=== PATIENT | male | born 1960 | race American Indian/Alaskan Native ===

== ENCOUNTER 2017-10-22 16:54 | Emergency (ER) | payer OTHER ==
[~2017-10-22] VITALS: Ht 175.3 cm; Wt 72.2 kg
[2017-10-22] MEDS ORDERED: PENICILLIN V P500 MG PO (17:17)
== END 2017-10-22 18:00 | disposition home or self-care (01) ==
LOC: ED 16:54
DX: K06.8 Other specified disorders of gingiva and edentulous alveolar ridge (principal); F10.20 Alcohol dependence, uncomplicated; F17.200 Nicotine dependence, unspecified, uncomplicated; Z98.890 Other specified postprocedural states; Z88.5 Allergy status to narcotic agent; Z88.8 Allergy status to other drugs, medicaments and biological substances
CPT/HCPCS: 99283

== ENCOUNTER 2017-11-17 14:01 | Emergency (ER) | payer OTHER ==
[~2017-11-17] VITALS: Ht 175.3 cm; Wt 72.2 kg
[~2017-11-17 14:01] MED LIST: PENICILLIN V P500 MG PO
== END 2017-11-17 18:55 | disposition home or self-care (01) ==
LOC: ED 14:01
DX: G89.18 Other acute postprocedural pain (principal); M79.661 Pain in right lower leg; F17.200 Nicotine dependence, unspecified, uncomplicated; Z88.5 Allergy status to narcotic agent; Z88.8 Allergy status to other drugs, medicaments and biological substances
CPT/HCPCS: 73590; 99283

== ENCOUNTER 2017-11-21 20:02 | Emergency (ER) | payer OTHER ==
[~2017-11-21] VITALS: Ht 175.3 cm; Wt 72.2 kg
[2017-11-21] MEDS ORDERED: CEPHALEXIN500 MG PO (21:45)
== END 2017-11-21 22:01 | disposition home or self-care (01) ==
LOC: ED 20:02
DX: G89.18 Other acute postprocedural pain (principal); R68.84 Jaw pain; M79.661 Pain in right lower leg; F17.200 Nicotine dependence, unspecified, uncomplicated; Z98.890 Other specified postprocedural states; Z88.5 Allergy status to narcotic agent; Z88.8 Allergy status to other drugs, medicaments and biological substances; Z79.2 Long term (current) use of antibiotics
CPT/HCPCS: 99283

== ENCOUNTER 2018-05-08 16:15 | Emergency (ER) | payer OTHER ==
[~2018-05-08] VITALS: Ht 175.3 cm; Wt 72.2 kg
[~2018-05-08 16:15] MED LIST changes: +CEPHALEXIN500 MG PO; +IBU600 MG PO
== END 2018-05-08 17:16 | disposition home or self-care (01) ==
LOC: ED 16:15
DX: F10.129 Alcohol abuse with intoxication, unspecified (principal); F17.200 Nicotine dependence, unspecified, uncomplicated; Z88.5 Allergy status to narcotic agent; Z88.8 Allergy status to other drugs, medicaments and biological substances
CPT/HCPCS: 99284

== ENCOUNTER 2018-12-31 11:59 | Emergency (ER) | payer OTHER ==
[~2018-12-31] VITALS: Ht 175.3 cm; Wt 72.2 kg
--- OUTSIDE RECORDS SUMMARY | 2018-12-31 12:02 | XMS ---
PreManage Notification: MARK CHAN Security Software Educator Events No recent Security Events currently on file CRITERIA MET - Group Notification - [facility] - Has Care Guidelines CARE PROVIDERS BERNARDO COYLE [facility] 05/09/2018-Current PHONE: Unknown DR BERNARDO COYLE Primary Care Current PHONE: [phone] Guidelines Source: [facility] Guidelines Date: 11/23/2017 Care Coordination: PATIENT DOES NOT HAVE A APPOINTMENT IN [place] OR AR[place]ANGED RIDE TO [employer] IF HE COMES IN, HE IS TO CONTACT [facility] AND SPEAK WITH GEORGES DOSS AT [phone] . AT THIS TIME THE ONLY PLAN THROUGH [facility] IS A DENTIST APPOINTMENT 11/29/17. HE DOES NOT HAVE MEDICAL COVERAGE THROUGH THIS [place]. HE CAN APPLY FOR THIS, HE MUST TALK WITH GEORGES. Care History Social 11/22/2017 [facility] PATIENT IS HOMELESS. PATIENT'S IS IN A HALFWAY IN [place].PATIENT IS A [employer]BER OF [employer] [place] WHERE HIS MOTHER LIVES. HE HAS MEDICAL BENEFITS THROUGH THEM. [facility] IS TRYING TO HELP PATIENT, HE IS NON-COMPLIANT AND DOES NOT FOLLOW THROUGH WITH PLANS. PATIENT HAS BEEN TRESSPASSED FROM THE [employer] STATION. [place] VISIT COUNT (12 MO.) [facility] SAMANTHA Ramon TOTAL 4 NOTE: Visits indicate total known visits. ED/UCC VISIT TRACKING (12 MO.) 12/31/2018 11:59 SAMANTHA Soto [place] TYPE: Emergency COMPLAINT: - LOSS OF CONCIOUSNESS 10/20/2018 08:12 [facility] [place] TYPE: Emergency DIAGNOSES: 0. NOT FEELING WELL 05/08/2018 16:15 SAMANTHA Fernández TYPE: Emergency COMPLAINT: - INTOXICATED DIAGNOSES: - Nicotine dependence, unspecified, uncomplicated - Allergy status to narcotic agent status - Alcohol abuse with intoxication, unspecified - Allergy status to other drugs, medicaments and biological substances status 04/27/2018 14:34 SAMANTHA Fernández TYPE: Emergency COMPLAINT: - CHEMICAL EXPOSURE DIAGNOSES: - Contact with and (suspected) exposure to other hazardous, chiefly nonmedicinal, chemicals - Nicotine dependence, unspecified, uncomplicated - Allergy status to other drugs, medicaments and biological substances status - Allergy status to narcotic agent status - Unspecified acute conjunctivitis, bilateral - Dermatitis, unspecified INPATIENT VISIT TRACKING (12 MO.) No inpatient visits to display in this time frame [id number]
[2018-12-31] MEDS ORDERED: CYMBALTA30 MG PO (12:15)
[2018-12-31] MEDS ORDERED: NEURONTIN300 MG PO (12:15)
--- NOTE | 2018-12-31 19:09 | EKG ---
[facility] [address] [facility] [place], [place] [address] Signed Sinus rhythm with 1st degree AV block Otherwise normal ECG When compared with ECG of 16-JUN-2016 12:17, No significant change was found Confirmed by JOHN FISH DO ([id number]) on 12/31/2018 7:08:54 PM Electronically Signed By: JOHN FISH DO 12/31/18 1909 PATIENT NAME: DUSTINMARK Electrocardiogram DATE OF : 64 PHYSICIAN: JOHN FISH DO REPORT #: [id number] REPORT IS CONFIDENTIAL AND NOT TO BE RELEASED WITHOUT AUTHORIZATION
== END 2018-12-31 13:57 | disposition home or self-care (01) ==
LOC: ED 11:59
DX: F10.129 Alcohol abuse with intoxication, unspecified (principal); Y90.8 Blood alcohol level of 240 mg/100 ml or more; Z85.830 Personal history of malignant neoplasm of bone; F17.200 Nicotine dependence, unspecified, uncomplicated; Z88.5 Allergy status to narcotic agent; Z88.8 Allergy status to other drugs, medicaments and biological substances; Z79.899 Other long term (current) drug therapy
CPT/HCPCS: 80053; 84484; 85025; 93005; 93010; 99284-25; G0480

== ENCOUNTER 2019-01-16 20:03 | Emergency (ER) | payer OTHER ==
[~2019-01-16] VITALS: Ht 175.3 cm; Wt 72.2 kg
--- OUTSIDE RECORDS SUMMARY | ~2019-01-16 | XMS | Encounter Summary ---
Demographics + + + | Address | [address] | | | [place] [address] | + + + | Home Phone | | + + + | Preferred Language | Unknown | + + + | Marital Status | Single | + + + | Baptism Affiliation | Unknown | + + + | Race | Unknown | + + + | Ethnic Group | Unknown | + + + Author + + + | Author | [facility] | | | and Demetriana | + + + | Organization | [facility] | | | and Demetriana | + + + | Address | Unknown | + + + | Phone | Unavailable | + + + Support + + +---------+ + | Name | Relationship | Address | Phone | + + +---------+ + | Rosalina Wilson | ECON | Unknown | | + + +---------+ + Care Team Providers + +------+ + | Care Psychologist Engineering Name | Role | Phone | + +------+ + | Pallavi Santiago PA-C | PCP | | + +------+ + Encounter Details +--------+ + + + + | Date | Type | Department | Care Team | Description | +--------+ + + + + | 12/15/ | Abstract | [facility] | Helio Fink DO | | | 2019 | | MED CTR RADIATION | [address] | | | | | ONCOLOGY CLINIC [address] | [place] | | | | | [place] | [address] | | | | | [place] [address] | | | | | | [phone] | | | +--------+ + + + + Social History + +-------+ +--------+------+ | Tobacco Use | Types | Packs/Day | Years | Date | | | | | Used | | + +-------+ +--------+------+ | Never Assessed | | | | | + +-------+ +--------+------+ + + + | Sex Assigned at | Date Recorded | | | | + + + | Not on file | | + + + + + + + | Job Start Date | Occupation | Industry | + + + + | Not on file | Not on file | Not on file | + + + + + + + + | Travel History | Travel Start | Travel End | + + + + + + | No recent travel history available. | + + documented as of this encounter Plan of Treatment Not on filedocumented as of this encounter Visit Diagnoses Not on filedocumented in this encounter"
--- OUTSIDE RECORDS SUMMARY | ~2019-01-16 | XMS | Encounter Summary ---
Demographics + + + | Address | [address] | | | [place] [address] | + + + | Home Phone | | + + + | Preferred Language | Unknown | + + + | Marital Status | Single | + + + | Adventism Affiliation | Unknown | + + + | Race | Unknown | + + + | Ethnic Group | Unknown | + + + Author + + + | Author | [facility] | | | and Demetriana | + + + | Organization | [facility] | | | and Demetriana [...] Team Providers + +------+ + | Care Animal Shelter Supervisor Name | Role | Phone | + [...] cavity | Helio Sevilla DO | [place] | | | | | carcinoma | [address] | [place], | | | | | ([facility]) | [address] | [place] [address] | | | | | Procedures | [place], | Phone: | | | | | CT Chest w | [place] [address] | [phone] | | | | | Contrast | Phone: | Fax: | | | | | | [phone] | [phone] | | | | | | Fax: | | | | | | | [phone] | | +--------+--------+ + + + + Reason for Visit +---------+ + | Reason | Comments | +---------+ + | Consult | | +---------+ + Evaluate & Treat (Routine) +--------+ + + + + + | Status | Reason | Specialty | Diagnoses / | Referred By | Referred To | | | | | Procedures | Contact | Contact | +--------+ + + + + + | Closed | Specialty | Radiation | Diagnoses | Pamela, | Helio Fink | | | Services | Oncology | [place] floor of | Pallavi A, | C, DO [address] | | | Required | | mouth | [place] [address] | [address] | | | | | Procedures | | [place], | | | | | [place] OFFICE | [place] | [place] [address] | | | | | OUTPATIENT | WAY | Phone: | | | | | VIS[address] | [place], | [phone] | | | | | MINUTES | [place] [address] | Fax: | | | | | | Phone: | [phone] | | | | | | [phone] | | | | | | | Fax: | | | | | | | [phone] | | +--------+ + + + + + Encounter Details +--------+ + + + + | Date | Type | Department | Care Team | Description | +--------+ + + + + | 12/18/ | Hospital | [facility] | Helio Fink DO | Oral cavity | | 2019 | Encounter | MED CTR RADIATION | [address] | carcinoma (HCC) | | | | ONCOLOGY CLINIC [address] | [place] | (Primary Dx); Cancer | | | | [place] | [address] | of lip and oral | | | | [place] [address] | | cavity (HCC) | | | | [phone] | | | +--------+ + + + [...] | Comments: States started smoking over last year | + + + + +---------+ + [...] + + + | Blood Pressure | 135/85 | 12/18/20181233 PDT | + + + + | Pulse | 71 | 12/18/20181233 PDT | + + + + | Temperature | 36.5 C (97.7 F) | 12/18/20181233 PDT | + + + + | Respiratory Rate | 16 | 12/18/20181233 PDT | + + + + | Oxygen Saturation | 99% | 12/18/20181233 PDT | + + + + | Inhaled Oxygen | - | - | | Concentration | | | + + + + | Weight | 81.5 kg (179 lb 10.8 | 12/18/20181233 PDT | | | oz) | | + + + + | Height | 178 cm (5' 10.08") | 12/18/20184 PDT | + + + + | Body Mass Index | 25.72 | 12/18/20181233 PDT | + + + + documented in [...] | + + + +---------+--------+ + | lidocaine | Place 1 patch onto | | 0 | | | | (LIDODERM) 5% patch | the skin Daily. | | | | 9 | | | Apply for 12 hours, | | | | | | | then remove for 12 | | | | | | | hours. 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
--- OUTSIDE RECORDS SUMMARY | ~2019-01-16 | XMS | Encounter Summary ---
Demographics + + + | Address | [address] | | | [place] [address] | + + + | Home Phone | | + + + | Preferred Language | Unknown | + + + | Marital Status | Single | + + + | Yarsani Affiliation | Unknown | + + + | Race | Unknown | + + + | Ethnic Group | Unknown | + + + Author + + + | Author | [facility] | | | and Demetriana | + + + | Organization | [facility] | | | and Demetriana | [...] Team Providers + +------+ + | Care Platform Mill Supervisor Name | Role | Phone | + +------+ + | Pallavi Santiago PA-C | PCP | | + +------+ + Encounter Details +--------+ + + + + | Date | Type | Department | Care Team | Description | +--------+ + + + + | 12/15/ | Abstract | [facility] | Helio Fink DO | | | 2019 | | MED CTR RADIATION | [address] | | | | | ONCOLOGY CLINIC [address] | [place] | | | | | [place] | [address] | | | | | [place] [address] | | | | | | [phone] | | | +--------+ + + + [...]
--- OUTSIDE RECORDS SUMMARY | ~2019-01-16 | XMS | Encounter Summary ---
Demographics + + + | Address | [address] | | | [place] [address] | + + + | Home Phone | | + + + | Preferred Language | Unknown | + + + | Marital Status | Single | + + + | Jewish Affiliation | Unknown | + + + | Race | Unknown | + + + | Ethnic Group | Unknown | + + + Author + + + | Author | [facility] | | | and Demetriana | + + + | Organization | [facility] | | | and Demetriana [...] Team Providers + +------+ + | Care Hoseman Name | Role | Phone | + [...] cavity | Helio Sevilla DO | [place] | | | | | carcinoma | [address] | [place], | | | | | ([facility]) | [address] | [place] [address] | | | | | Procedures | [place], | Phone: | | | | | CT Chest w | [place] [address] | [phone] | | | | | Contrast | Phone: | Fax: | | | | | | [phone] | [phone] | | | | | | Fax: | | | | | | | [phone] | | +--------+--------+ + + + + [...] cavity | Helio C, DO | [place] | | | | | carcinoma | [address] | [place], | | | | | ([facility]) | [address] | [place] [address] | | | | | Procedures | [place], | Phone: | | | | | CT Chest w | [place] [address] | [phone] | | | | | Contrast | Phone: | Fax: | | | | | | [phone] | [phone] | | | | | | Fax: | | | | | | | [phone] | | +--------+--------+ + + + + [...] + + | 12/21/ | Hospital | [facility] | Helio Fink DO | Oral cavity | | 2019 | Encounter | MED CTR CT [address] | [address] | carcinoma (HCC) | | | | [place], | [place], [place] | | | | | [place] [address] | [address] | | | | | [phone] | | | +--------+ + + + [...] | fusion between the bone graft and [place] portions of the mandible. | | | [...] is well | | | fused with [place] portions of the mandible. Ill-defined soft | [...] completeosseous fusion between the bone graft and [place] portions of the | | mandible. There [...] The bone graft is well fused with [place] | | portionsof the mandible.Ill-defined soft tissue [...] The bone graft is well fused with [place] portions | |of the mandible. | | [...]
--- OUTSIDE RECORDS SUMMARY | ~2019-01-16 | XMS | Clinical Summary ---
Demographics + + + | Address | [address] | | | [place] [address] | + + + | Home Phone | | + + + | Preferred Language | Unknown | + + + | Marital Status | Single | + + + | Scientology Affiliation | Unknown | + + + | Race | Unknown | + + + | Ethnic Group | Unknown | + + + Author + + + | Author | [facility] | | | and Demetriana | + + + | Organization | [facility] | | | and Demetriana | [...] Team Providers + +------+ + | Care Laborer Cutting Tool Name | Role | Phone | + +------+ + | Pallavi Santiago PA-C | PP | | + +------+ + Allergies + + + + + + | Active Allergy | Reactions | Severity | Noted | Comments | | | | | Date | | + + + + + + | Chlorpromazine | Other (See Comments) | Medium | 06/20/20 | Not known | | | | | 16 | | + + + + + + | Codeine | Hives | Medium | 06/20/20 | unknown | | | | | 16 | | + + + + + + Medications + + + +---------+------+------+-------+ | Medication | Sig | Dispensed | Refills | Star | End | Statu | | | | | | t | Date | s | | | | | | Date | | | + + + +---------+------+------+-------+ | ibuprofen | Take 600 mg by mouth | | 0 | | | Activ | | (ADVIL,MOTRIN) 600 | every 6 hours as | | | | | e | | MG tablet | needed for Pain. | | | | | | + + + +---------+------+------+-------+ | Multiple | Take 1 tablet by | | 0 | | | Activ | | Vitamins-Minerals | mouth Daily. | | | | | e | | (MULTIVITAMIN & | | | | | | | | MINERAL PO) | | | | | | | + + + +---------+------+------+-------+ | gabapentin | Take 300 mg by mouth | | 0 | | | Activ | | (NEURONTIN) 300 mg | 3 times daily. | | | | | e | | capsule | | | | | | | + + + +---------+------+------+-------+ | cholecalciferol | Take 2,000 Units by | | 0 | | | Activ | | (VITAMIN D-3) 2000 | mouth Daily. | | | | | e | | units TABS | | | | | | | + + + +---------+------+------+-------+ | DULoxetine | Take 20 mg by mouth | | 0 | | | Activ | | (CYMBALTA) [address] | Daily. | | | | | e | | capsule | | | | | | | + + + +---------+------+------+-------+ | cyanocobalamin | Take 1,000 mcg by | | 0 | | | Activ | | (VITAMIN B-12) 1000 | mouth Daily. | | | | | e | | MCG tablet | | | | | | | + + + +---------+------+------+-------+ | ascorbic acid | Take 500 mg by mouth | | 0 | | | Activ | | (VITAMIN C) 500 mg | Daily. | | | | | e | | tablet | | | | | | | + + + +---------+------+------+-------+ | | Swish and spit 5 mLs | | 0 | | | Activ | | diphenhydrAMINE-lido | every 4 hours as | | | | | e | | alysa-aluminum & | needed for Pain. | | | | | | | magnesium | (RECIPE = 1:1:1 | | | | | | | hydroxide-simethicon | mixture of Maalox, | | | | | | | e (MAGIC MOUTHWASH) | diphenhydrAMINE, | | | | | | | | viscous lidocaine) | | | | | | + + + +---------+------+------+-------+ | DICLOFENAC PO | Take 50 mg by mouth | | 0 | | | Activ | | | 2 times daily. | | | | | e | + + + +---------+------+------+-------+ | MAGNESIUM OXIDE | Take 1 tablet by | | 0 | | | Activ | | 400 PO | mouth Daily. | | | | | e | + + + +---------+------+------+-------+ | naproxen | Take 500 mg by mouth | | 0 | | | Activ | | (NAPROSYN) 250 mg | 2 times daily (with | | | | | e | | tablet | breakfast & | | | | | | | | dinner). | | | | | | + + + +---------+------+------+-------+ | lidocaine | Place 1 patch onto | | 0 | | 03/2 | Disco | | (LIDODERM) 5% patch | the skin Daily. | | | | 1/20 | ntinu | | | Apply for 12 hours, | | | | 19 | ed | | | then remove for 12 | | | | | | | | hours. | | | | | | + + + +---------+------+------+-------+ Active Problems + + + | Problem | Noted Date | + + + | Oral cavity carcinoma | 12/06/2018 | + + + + + | Cancer Staging: Pathologic stage from 12/18/2018: Stage FLORY | | (pN0, cM0, p16: Unknown, HPV: Unknown) - Signed by Helio Fink, | | DO on 12/19/2018 | + + Encounters +--------+ + + + + | Date | Type | Specialty | Care Team | Description | +--------+ + + + + | 12/21/ | Hospital | | Ashvin Fajardo, | Oral cavity | | 2018 | Encounter | | MD | carcinoma (HCC) | | | | | | (Primary Dx) | +--------+ + + + + | 12/21/ | Hospital | | Helio Fink DO | Oral cavity | | 2018 | Encounter | | | carcinoma (HCC) | +--------+ + + + + | 12/18/ | Hospital | | Helio Fink DO | Oral cavity | | 2018 | Encounter | | | carcinoma (HCC) | | | | | | (Primary Dx); Cancer | | | | | | of lip and oral | | | | | | cavity (HCC) | +--------+ + + + + | 12/15/ | Abstract | | Helio Fink DO | | | 2018 | | | | | +--------+ + + + + from Last 3 Months Immunizations + + + + | Name | Dates Previously Given | Next Due | + + + + | PNEUMOCOCCAL | 06/21/2016 | | | POLYSACCHARIDE | | | | 23-VALENT (PPSV23) | | | + + + + Family History + + +------+ + | Medical History | Relation | Name | Comments | + + +------+ + | Cancer | Father | | | + + +------+ + | Cancer | Maternal | | | | | Grandmoth | | | | | er | | | + + +------+ + + +------+ + + | Relation | Name | Status | Comments | + +------+ + + | Father | | | | + +------+ + + | Maternal Grandmother | | | | + +------+ + + | Mother | | Alive | | + +------+ + + Social History + +-------+ +--------+------+ [...] recent travel history available. | + + Last Filed Vital Signs + + + + | Vital Sign | Reading | Time Taken | + + + + | Blood Pressure | 124/77 | 12/21/20181027 PDT | + + + + | Pulse | 88 | 12/21/20181027 PDT | + + + + | Temperature | 36.9 C (98.4 F) | 12/21/20188 PDT | + + + + | [...] 12/18/20181233 PDT | + + + + Plan of Treatment + + + + + | Health Maintenance | Due Date | Last Done | Comments | + + + + + | Hepatitis C | | | | | Screening | 2 | | | + + + + + | Colorectal Cancer | | | | | Screening | 2 | | | | (Colonoscopy) | | | | + + + + + | Vaccine: | | 06/21/2016, 05/06/2011 | | | Pneumococcal 19-64 | 7 | | | | Highest Risk (3 of 3 | | | | | - PCV13) | | | | + + + + + | Vaccine: Zoster (2 | | 11/23/2018 | | | of 2) | 9 | | | + + + + + | Vaccine: | | 06/24/2015, 05/06/2011 | | | Dtap/Tdap/Td (3 - | 5 | | | | Td) | | | | + + + + + | Vaccine: Influenza | Completed | 07/27/2018 | | + + + + + Procedures + +--------+ + + + | [...] section. | + +--------+ + + + from Last 3 Months Results IMAGING REPORT - EXTERNAL SCAN (12/25/2018 0:00 PDT)Only the most recent of 2 results with in the time period is included. + + + | Narrative | Performed At | + + + | Ordered by an | | | unspecified provider. | | + + + CT Neck Chest w Contrast (12/21/2018 7:33 [...] | fusion between the bone graft and [place] portions of the mandible. | | | [...] is well | | | fused with [place] portions of the mandible. Ill-defined soft | [...] completeosseous fusion between the bone graft and [place] portions of the | | mandible. There [...] The bone graft is well fused with [place] | | portionsof the mandible.Ill-defined soft tissue [...] The bone graft is well fused with [place] portions | |of the mandible. | | [...] | | | + +---------+ + + from Last 3 Months Insurance + +--------+ +--------+ +---------+--------+ | Payer | Benefi | Subscriber | Effect | Phone | Address | Type | | | t Plan | ID | tressa | | | | | | / | | Dates | | | | | | Group | | | | | | + +--------+ +--------+ +---------+--------+ | [place]ICA | [id number] | | [phone] | | Medica | | | [place] | | 018-Pr | 2 | | id | | | PLUS | | esent | | | | + +--------+ +--------+ +---------+--------+ | [employer] [facility] | IHS | [id number] | | | | Indemn | | SERVICE | YELLOW | | 019-Pr | | | ity | | | HAWK | | esent | | | | + +--------+ +--------+ +---------+--------+ + +--------+ +--------+ + + | Guarantor Name | Accoun | Relation to | Date | Phone | Billing Address | | | t Type | Patient | of | | | | | | | | | | + +--------+ +--------+ + + | Enrrique Wilson | Person | Self | [birth year] | [address] | | | al/Alonso | | 1960 | [phone] | [place] [address] | | | korin | | | 4 (Home) | | + +--------+ +--------+ + + Advance Directives Patient has advance care planning documents on file. For more information, please contact:[facility] [place] [address]
--- OUTSIDE RECORDS SUMMARY | ~2019-01-16 | XMS | Clinical Summary ---
Demographics + + + | Address | [address] | | | [place] [address] | + + + | Home Phone | | + + + | Preferred Language | Unknown | + + + | Marital Status | Single | + + + | Jew Affiliation | Unknown | + + + | Race | Unknown | + + + | Ethnic Group | Unknown | + + + Author + + + | Author | [facility] | | | and Demetriana | + + + | Organization | [facility] | | | and Demetriana [...] Team Providers + +------+ + | Care Warehouse Distribution Manager Name | Role | Phone | + [...] | fusion between the bone graft and [place] portions of the mandible. | | | [...] is well | | | fused with [place] portions of the mandible. Ill-defined soft | [...] completeosseous fusion between the bone graft and [place] portions of the | | mandible. There [...] The bone graft is well fused with [place] | | portionsof the mandible.Ill-defined soft tissue [...] The bone graft is well fused with [place] portions | |of the mandible. | | [...] +---------+--------+ | MEDICAID [place] | MEDICA | [id number] | | [phone] | | Medica | | | [place] | | 018-Pr | 2 | | id | | | PLUS | | esent | | | | + +--------+ +--------+ +---------+--------+ | [facility] | IHS | [id number] | | | | Indemn | | [...] | | al/Alonso | | [id number] | [phone] | [place] [address] | | | korin | | | 4 (Home) | | + +--------+ +--------+ + + Advance Directives Patient has advance care planning documents on file. For more information, please contact:[facility] [place] [address]
--- OUTSIDE RECORDS SUMMARY | ~2019-01-16 | XMS | Encounter Summary ---
Demographics + + + | Address | [address] | | | [place] [address] | + + + | Home Phone | | + + + | Preferred Language | Unknown | + + + | Marital Status | Single | + + + | Orthodox Affiliation | Unknown | + + + | Race | Unknown | + + + | Ethnic Group | Unknown | + + + Author + + + | Author | [facility] | | | and Demetriana | + + + | Organization | [facility] | | | and Demetriana [...] Team Providers + +------+ + | Care Senior Account Representative Name | Role | Phone | + [...] cavity | Helio Sevilla DO | [address] | | | | | carcinoma | [address] | [place], | | | | | ([facility]) | [address] | [place] [address] | | | | | Procedures | [place], | Phone: | | | | | CT Chest w | [place] [address] | [phone] | | | | | Contrast | Phone: | Fax: | | | | | | [phone] | [phone] | | | | | | Fax: | | | | | | | [phone] | | +--------+--------+ + + + + [...] cavity | Helio C, DO | [address] | | | | | carcinoma | [address] | [place], | | | | | ([facility]) | [address] | [place] [address] | | | | | Procedures | [place], | Phone: | | | | | CT Chest w | [place] [address] | [phone] | | | | | Contrast | Phone: | Fax: | | | | | | [phone] | [phone] | | | | | | Fax: | | | | | | | [phone] | | +--------+--------+ + + + + [...] + + | 12/21/ | Hospital | [facility] | Helio Fink DO | Oral cavity | | 2019 | Encounter | MED [facility] [address] | [address] | carcinoma (HCC) | | | | [address] [place], | [place], [place] | | | | | [place] [address] | [address] | | | | | [phone] | | | +--------+ + + + [...] | fusion between the bone graft and [place] portions of the mandible. | | | [...] is well | | | fused with [place] portions of the mandible. Ill-defined soft | [...] completeosseous fusion between the bone graft and [place] portions of the | | mandible. There [...] The bone graft is well fused with [place] | | portionsof the mandible.Ill-defined soft tissue [...] The bone graft is well fused with [place] portions | |of the mandible. | | [...]
--- OUTSIDE RECORDS SUMMARY | ~2019-01-16 | XMS | Encounter Summary ---
Demographics + + + | Address | [address] | | | [place] [address] | + + + | Home Phone | | + + + | Preferred Language | Unknown | + + + | Marital Status | Single | + + + | Restoration Affiliation | Unknown | + + + | Race | Unknown | + + + | Ethnic Group | Unknown | + + + Author + + + | Author | [facility] | | | and Demetriana | + + + | Organization | [facility] | | | and Demetriana [...] Team Providers + +------+ + | Care Alum Mixer Name | Role | Phone | + [...] | | | | | Procedures | [address] | [place] | | | | | IN OFFICE | | [place] | | | | | OUTPATIENT | [place], | [address] | | | | | VISIT 25 | [place] | Phone: | | | | | MINUTES | [address] | [phone] | | | | | | | Fax: | | | | | | | [phone] | +--------+ + + + + + Encounter Details +--------+ + + + + | Date | Type | Department | Care Team | Description | +--------+ + + + + | 12/21/ | Hospital | [facility] | Ashvin Fajardo, | Oral cavity | | 2019 | Encounter | MED CTR MEDICAL | [address] | carcinoma (HCC) | | | | ONCOLOGY CLINIC [address] | [place] | (Primary Dx) | | | | [address] | [address] | | | | | [place] [address] | [phone] | | | | | [phone] | | | +--------+ + + + [...]
--- OUTSIDE RECORDS SUMMARY | ~2019-01-16 | XMS | Encounter Summary ---
Demographics + + + | Address | [address] | | | [place] [address] | + + + | Home Phone | | + + + | Preferred Language | Unknown | + + + | Marital Status | Single | + + + | Muslim Affiliation | Unknown | + + + | Race | Unknown | + + + | Ethnic Group | Unknown | + + + Author + + + | Author | [facility] | | | and Demetriana | + + + | Organization | [facility] | | | and [...] Team Providers + +------+ + | Care Manuscript Editor Name | Role | Phone | + [...] cavity | Helio Sevilla DO | [address] | | | | | carcinoma | [address] | [place], | | | | | ([facility]) | [address] | [place] [address] | | | | | Procedures | [place], | Phone: | | | | | CT Chest w | [place] [address] | [phone] | | | | | Contrast | Phone: | Fax: | | | | | | [phone] | [phone] | | | | | | Fax: | | | | | | | [phone] | | +--------+--------+ + + + + [...] | Required | | mouth | [place] [address] | [address] | | | | | Procedures | | [place], | | | | | [place] OFFICE | [place] | [place] [address] | | | | | OUTPATIENT | WAY | Phone: | | | | | VIS[address] | [place], | [phone] | | | | | MINUTES | [place] [address] | Fax: | | | | | | Phone: | [phone] | | | | | | [phone] | | | | | | | Fax: | | | | | | | [phone] | | +--------+ + + + + + Encounter Details +--------+ + + + + | Date | Type | Department | Care Team | Description | +--------+ + + + + | 12/18/ | Hospital | [facility] | Helio Fink DO | Oral cavity | | 2019 | Encounter | MED CTR RADIATION | [address] | carcinoma (HCC) | | | | ONCOLOGY CLINIC [address] | [place] | (Primary Dx); Cancer | | | | [address] | [address] | of lip and oral | | | | [place] [address] | | cavity (HCC) | | | | [phone] | | | +--------+ + + + [...]
--- OUTSIDE RECORDS SUMMARY | ~2019-01-16 | XMS | Encounter Summary ---
Demographics + + + | Address | [address] | | | [place] [address] | + + + | Home Phone | | + + + | Preferred Language | Unknown | + + + | Marital Status | Single | + + + | Jehovah'S Witness Affiliation | Unknown | + + + | Race | Unknown | + + + | Ethnic Group | Unknown | + + + Author + + + | Author | [facility] | | | and Demetriana | + + + | Organization | [facility] | | | and [...] Team Providers + +------+ + | Care Supervisor Metalizing Name | Role | Phone | + [...] | | | | | Procedures | [address] | [place] | | | | | [place] OFFICE | | [place] | | | | | OUTPATIENT | [place], | [address] | | | | | VISIT [address] | [place] | Phone: | | | | | MINUTES | [address] | [phone] | | | | | | | Fax: | | | | | | | [phone] | +--------+ + + + + + Encounter Details +--------+ + + + + | Date | Type | Department | Care Team | Description | +--------+ + + + + | 12/21/ | Hospital | [facility] | Ashvin Fajardo, | Oral cavity | | 2019 | Encounter | MED CTR MEDICAL | [address] | carcinoma (HCC) | | | | ONCOLOGY CLINIC [address] | [place] | (Primary Dx) | | | | [address] | [address] | | | | | [place] [address] | [phone] | | | | | [phone] | | | +--------+ + + + [...]
[~2019-01-16 20:03] MED LIST changes: +CYMBALTA30 MG PO; +NEURONTIN300 MG PO
--- OUTSIDE RECORDS SUMMARY | 2019-01-16 20:06 | XMS ---
PreManage Notification: MARK CHAN Security Online Marketing Analyst Events No recent Security Events currently on file CRITERIA MET - Group Notification - [facility] - Has Care Guidelines - [facility] - 2 Visits in 30 Days CARE PROVIDERS BERNARDO COYLE [facility] 05/09/2018-Current PHONE: Unknown DR BERNARDO COYLE Primary Care Current PHONE: [phone] Guidelines Source: [facility] Guidelines Date: 11/23/2017 Care Coordination: PATIENT DOES NOT HAVE A APPOINTMENT IN [place] OR ARRANGED RIDE TO [place]. IF HE COMES IN, HE IS TO CONTACT [facility] AND SPEAK WITH GEORGES DOSS AT [phone] . AT THIS TIME THE ONLY PLAN THROUGH [facility] IS A DENTIST APPOINTMENT 11/29/17. HE DOES NOT HAVE MEDICAL COVERAGE THROUGH THIS [place]. HE CAN APPLY FOR THIS, HE MUST TALK WITH GEORGES. Care History Social 11/22/2017 [facility] PATIENT IS HOMELESS. PATIENT'S IS IN A ASSISTED IN [place].PATIENT IS A [employer] [employer] [place] WHERE HIS MOTHER LIVES. HE HAS MEDICAL BENEFITS THROUGH THEM. [facility] IS TRYING TO HELP PATIENT, HE IS NON-COMPLIANT AND DOES NOT FOLLOW THROUGH WITH PLANS. PATIENT HAS BEEN TRESSPASSED FROM THE [employer] STATION. [place] VISIT COUNT (12 MO.) [place] [place] [address] SAMANTHA Ramon TOTAL 5 NOTE: Visits indicate total known visits. ED/UCC VISIT TRACKING (12 MO.) 01/16/2019 20:03 SAMANTHA Soto [place] TYPE: Emergency COMPLAINT: - CHEST PAIN 12/31/2018 11:59 SAMANTHA Soto [place] TYPE: Emergency COMPLAINT: - LOSS OF CONCIOUSNESS DIAGNOSES: - Syncope and collapse - Personal history of malignant neoplasm of bone - Blood alcohol level of 240 mg/100 ml or more - Nicotine dependence, unspecified, uncomplicated - Other fpc (current) drug therapy - Alcohol abuse with intoxication, unspecified - Allergy status to narcotic agent status - Allergy status to other drugs, medicaments and biological substances status 10/20/2018 08:12 [facility] TYPE: Emergency DIAGNOSES: 0. NOT FEELING WELL 05/08/2018 16:15 SAMANTHA [place]oto [place] TYPE: Emergency COMPLAINT: - INTOXICATED DIAGNOSES: - Nicotine dependence, unspecified, uncomplicated - Allergy status to narcotic agent status - Alcohol abuse with intoxication, unspecified - Allergy status to other drugs, medicaments and biological substances status 04/27/2018 14:[address] [facility] [place] TYPE: Emergency COMPLAINT: - CHEMICAL EXPOSURE DIAGNOSES: [...] visits to display in this time frame [email or web address]
--- NOTE | 2019-01-17 15:57 | EKG ---
[facility] [address] [place], [place] [address] Signed Sinus rhythm with 1st degree AV block Otherwise normal ECG When compared with ECG of 31-DEC-2018 12:20, No significant change was found Confirmed by JOHN FISH DO ([id number]) on 01/17/2019 3:57:45 PM Electronically Signed By: JOHN FISH DO 01/17/19 1557 PATIENT NAME: DUSTINMARK Electrocardiogram DATE OF : 64 PHYSICIAN: JOHN FISH DO REPORT #: [id number] REPORT IS CONFIDENTIAL AND NOT TO BE RELEASED WITHOUT AUTHORIZATION
== END 2019-01-17 00:48 | disposition home or self-care (01) ==
LOC: ED 20:03
DX: R53.81 Other malaise (principal); F17.200 Nicotine dependence, unspecified, uncomplicated; Z88.5 Allergy status to narcotic agent; Z88.8 Allergy status to other drugs, medicaments and biological substances; Z79.899 Other long term (current) drug therapy; Z85.818 Personal history of malignant neoplasm of other sites of lip, oral cavity, and pharynx
CPT/HCPCS: 80053; 84484; 85025; 93005; 93010; 96360; 96361; 99284-25; G0480; J7030

== ENCOUNTER 2019-01-22 23:01 | Emergency (ER) | payer OTHER ==
[~2019-01-22] VITALS: Ht 175.3 cm; Wt 72.2 kg
--- OUTSIDE RECORDS SUMMARY | ~2019-01-22 | XMS | Encounter Summary ---
Demographics + + + | Address | [address] | | | [place] [address] | + + + | Home Phone | | + + + | Preferred Language | Unknown | + + + | Marital Status | Single | + + + | Yarsanism Affiliation | Unknown | + + + | Race | Unknown | + + + | Ethnic Group | Unknown | + + + Author + + + | Author | [facility] | | | and Demetriana | + + + | Organization | [facility] | | | and Demetriana [...] Team Providers + +------+ + | Care Medical Coding Technician Name | Role | Phone | + +------+ + | Pallavi Santiago PA-C | PCP | | + +------+ + Reason for Visit Evaluate & Treat (Routine) +--------+ + + + + + | Status | Reason | Specialty | Diagnoses / | Referred By | Referred To | | | | | Procedures | Contact | Contact | +--------+ + + + + + | Closed | Specialty | Oncology | Diagnoses | Juni, | Scotty | | | Services | | [place] oral | Ran Olivo MD | | | Required | | cavity | [address] | [address] | | | | | Procedures | [address] | [place] | | | | | [place] OFFICE | | [place] | | | | | OUTPATIENT | [place], | [address] | | | | | VIS[address] | [place] | Phone: | | | | | MINUTES | [address] | [phone] | | | | | | | Fax: | | | | | | | [phone] | +--------+ + + + + + Encounter Details +--------+ + + + + | Date | Type | Department | Care Team | Description | +--------+ + + + + | 12/21/ | Hospital | [facility] | Ashvin Fajardo, | Oral cavity | | 2019 | Encounter | MED CTR MEDICAL | [address] | carcinoma (HCC) | | | | ONCOLOGY CLINIC [address] | [place] | (Primary Dx) | | | | [address] | [address] | | | | | [place] [address] | [phone] | | | | | [phone] | | | +--------+ + + + + Social History + +-------+ +--------+------+ | Tobacco Use | Types | Packs/Day | Years | Date | | | | | Used | | + +-------+ +--------+------+ | Current Every Day | | 1 | 1 | | | Smoker | | | | | + +-------+ +--------+------+ + +------+---+---+ | Smokeless Tobacco: | Chew | | | | Former User | | | | + +------+---+---+ + + | Comments: States started smoking over last year, currently less than a pack per day | + + + + +---------+ + | Alcohol Use | Drinks/We | oz/Week | Comments | | | ek | | | + + +---------+ + | No | | | heavy drinker in past, has not had alcohol | | | | | for last tow months, just got released | | | | | from rehab | + + +---------+ + + + + | Sex Assigned at [...] + + documented as of this encounter Last Filed Vital Signs + + + + | Vital Sign | Reading | Time Taken | + + + + | Blood Pressure | 124/77 | 12/21/20181027 PDT | + + + + | Pulse | 88 | 12/21/20181027 PDT | + + + + | Temperature | 36.9 C (98.4 F) | 12/21/20181027 PDT | + + + + | Respiratory Rate | 16 | 12/21/20181027 PDT | + + + + | Oxygen Saturation | 97% | 12/21/20181027 PDT | + + + + | Inhaled Oxygen | - | - | | Concentration | | | + + + + | Weight | - | - | + + + + | Height | - | - | + + + + | Body Mass Index | - | - | + + + + documented in this encounter Medications at Time of Discharge + + + +---------+--------+ + | Medication | Sig | Dispensed | Refills | Start | End Date | | | | | | Date | | + + + +---------+--------+ + | ascorbic acid | Take 500 mg by mouth | | 0 | | | | (VITAMIN C) 500 mg | Daily. | | | | | | tablet | | | | | | + + + +---------+--------+ + | cholecalciferol | Take 2,000 Units by | | 0 | | | | (VITAMIN D-3) 2000 | mouth Daily. | | | | | | units TABS | | | | | | + + + +---------+--------+ + | cyanocobalamin | Take 1,000 mcg by | | 0 | | | | (VITAMIN B-12) 1000 | mouth Daily. | | | | | | MCG tablet | | | | | | + + + +---------+--------+ + | DICLOFENAC PO | Take 50 mg by mouth | | 0 | | | | | 2 times daily. | | | | | + + + +---------+--------+ + | | Swish and spit 5 mLs | | 0 | | | | diphenhydrAMINE-lido | every 4 hours as | | | | | | alysa-aluminum & | needed for Pain. | | | | | | magnesium | (RECIPE = 1:1:1 | | | | | | hydroxide-simethicon | mixture of Maalox, | | | | | | e (MAGIC MOUTHWASH) | diphenhydrAMINE, | | | | | | | viscous lidocaine) | | | | | + + + +---------+--------+ + | DULoxetine | Take 20 mg by mouth | | 0 | | | | (CYMBALTA) [address] | Daily. | | | | | | capsule | | | | | | + + + +---------+--------+ + | gabapentin | Take 300 mg by mouth | | 0 | | | | (NEURONTIN) 300 mg | 3 times daily. | | | | | | capsule | | | | | | + + + +---------+--------+ + | ibuprofen | Take 600 mg by mouth | | 0 | | | | (ADVIL,MOTRIN) 600 | every 6 hours as | | | | | | MG tablet | needed for Pain. | | | | | + + + +---------+--------+ + | MAGNESIUM OXIDE | Take 1 tablet by | | 0 | | | | 400 PO | mouth Daily. | | | | | + + + +---------+--------+ + | Multiple | Take 1 tablet by | | 0 | | | | Vitamins-Minerals | mouth Daily. | | | | | | (MULTIVITAMIN & | | | | | | | MINERAL PO) | | | | | | + + + +---------+--------+ + | naproxen | Take 500 mg by mouth | | 0 | | | | (NAPROSYN) 250 mg | 2 times daily (with | | | | | | tablet | breakfast & | | | | | | | dinner). | | | | | + + + +---------+--------+ + documented as of this encounter Plan of Treatment Not on filedocumented as of this encounter Procedures + +--------+ + + + | Procedure Name | Priori | Date/Time | Associated Diagnosis | Comments | | | ty | | | | + +--------+ + + + | IMAGING REPORT - | | 12/25/2018 | | Results for this | | EXTERNAL SCAN | | 0:00 PDT | | procedure are in the | | | | | | results section. | + +--------+ + + + | IMAGING REPORT - | | 12/25/2018 | | Results for this | | EXTERNAL SCAN | | 0:00 PDT | | procedure are in the | | | | | | results section. | + +--------+ + + + | LABS - EXTERNAL SCAN | | 07/19/2018 | | Results for this | | | | 0:00 PDT | | procedure are in the | | | | | | results section. | + +--------+ + + + documented in this encounter Results IMAGING REPORT - EXTERNAL SCAN (12/25/2018 0:00 PDT) + + + | Narrative | Performed At | + + + | Ordered by an | | | unspecified provider. | | + + + IMAGING REPORT - EXTERNAL SCAN (12/25/2018 0:00 PDT) + + + | Narrative | Performed At | + + + | Ordered by an | | | unspecified provider. | | + + + LABS - EXTERNAL SCAN (07/19/2018 0:00 PDT) + + + | Narrative | Performed At | + + + | Ordered by an | | | unspecified provider. 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
--- OUTSIDE RECORDS SUMMARY | ~2019-01-22 | XMS | Encounter Summary ---
Demographics + + + | Address | [address] | | | [place] [address] | + + + | Home Phone | | + + + | Preferred Language | Unknown | + + + | Marital Status | Single | + + + | Shinto Affiliation | Unknown | + + + | Race | Unknown | + + + | Ethnic Group | Unknown | + + + Author + + + | Author | [facility] | | | and Demetriana | + + + | Organization | [facility] | | | and Demetriana [...] Team Providers + +------+ + | Care Crocodile Farmer Name | Role | Phone | + +------+ + | Pallavi Santiago PA-C | PCP | | + +------+ + Reason for Referral Diagnostic/Screening (Routine) +--------+--------+ + + + + | Status | Reason | Specialty | Diagnoses / | Referred By | Referred To | | | | | Procedures | Contact | Contact | +--------+--------+ + + + + | Closed | | Radiology | Diagnoses | [place], | [address] | | | | | Oral cavity | Helio Sevilla DO | [place] | | | | | carcinoma | [address] | [place], | | | | | ([facility]) | [address] | [place] [address] | | | | | Procedures | [place], | Phone: | | | | | CT Chest w | [place] [address] | [phone] | | | | | Contrast | Phone: | Fax: | | | | | | [phone] | [phone] | | | | | | Fax: | | | | | | | [phone] | | +--------+--------+ + + + + Diagnostic/Screening (Routine) +--------+--------+ + + + + | Status | Reason | Specialty | Diagnoses / | Referred By | Referred To | | | | | Procedures | Contact | Contact | +--------+--------+ + + + + | Closed | | Radiology | Diagnoses | [place], | [address] | | | | | Oral cavity | Helio C, DO | [place] | | | | | carcinoma | [address] | [place], | | | | | ([facility]) | [address] | [place] [address] | | | | | Procedures | [place], | Phone: | | | | | CT Chest w | [place] [address] | [phone] | | | | | Contrast | Phone: | Fax: | | | | | | [phone] | [phone] | | | | | | Fax: | | | | | | | [phone] | | +--------+--------+ + + + + Reason for Visit Auth/Cert +--------+--------+ + + + + | Status | Reason | Specialty | Diagnoses / | Referred By | Referred To | | | | | Procedures | Contact | Contact | +--------+--------+ + + + + | | | | | | | +--------+--------+ + + + + Encounter Details +--------+ + + + + | Date | Type | Department | Care Team | Description | +--------+ + + + + | 12/21/ | Hospital | [facility] | Helio Fink DO | Oral cavity | | 2019 | Encounter | MED CTR [address] | [address] | carcinoma (HCC) | | | | [place], | [place], [place] | | | | | [place] [address] | [address] | | | | | [phone] | | | +--------+ + + + [...] + + documented as of this encounter Medications at Time of Discharge [...] as of this encounter Plan of Treatment + +--------+ + + | Name | Priori | Associated Diagnoses | Order Schedule | | | ty | | | + +--------+ + + | CT Chest w Contrast | Routin | Oral cavity | 1 Occurrences | | | e | carcinoma (HCC) | starting 12/21/2018 | | | | | until 12/21/2018 | + +--------+ + + documented as of this encounter Procedures + +--------+ + + + | Procedure Name | Priori | Date/Time | Associated Diagnosis | Comments | | | ty | | | | + +--------+ + + + | CT SOFT TISSUE NECK | Routin | 12/21/2018 | Oral cavity | Results for this | | CHEST W CONTRAST | e | 7:33 PDT | carcinoma (HCC) | procedure are in the | | | | | | results section. 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 No CT | | | 10/24/2017. Chest CT 10/24/2017. TECHNIQUE: Imaging is performed | | | from the skull base through the chest following the intravenous | | | administration of 85 mL of Omnipaque 350. DOSE: DLP = 736.41 mGy | | | per centimeter. FINDINGS: NECK CT: Interval resection and | | | reconstruction of the right mandible. There is complete osseous | | | fusion between the bone graft and ely shoshone portions of the mandible. | | | There is mild atrophy of the left masseter and pterygoid | | | muscles. The left sternocleidomastoid is small compared to the | | | right. The right submandibular gland has been surgically excised. | | | There are surgical clips near the mandibular angle anterior to the | | | carotid space. There is blurring of typical fat planes in and | | | anterior to the carotid space and along the anterior margin of the | | | left sternocleidomastoid (series 2, images 33 through 43). There | | | is no mass effect upon the airway. No cervical | | | lymphadenopathy. The epiglottis is normal. The vocal cords are | | | symmetrically opposed and without nodularity. The thyroid gland is | | | normal. The globes and retrobulbar structures are symmetric and | | | unremarkable. There is diffuse cervical spondylosis. CHEST CT: | | | Lungs: Stable micronodule in the anterior right upper lobe | | | (series 102, image 54). No significant noncalcified pulmonary | | | nodules. No airspace disease. No pleural effusions. There | | | was a patent. No bronchial wall thickening. No bronchiectasis. | | | Heart and mediastinum: No aneurysmal dilatation of the thoracic | | | aorta. No cardiac chamber enlargement. No pericardial | | | thickening. No mediastinal or hilar lymphadenopathy. Chest | | | wall: No axillary or visible supraclavicular lymphadenopathy. | | | Upper abdomen: No significant pathology in the visible upper | | | abdomen. Bones: No suspicious lytic or blastic bone | | | lesions. There are healed right rib fractures. IMPRESSION - | | | Postoperative changes consistent with partial mandibular | | | resection and reconstruction on the left. The bone graft is well | | | fused with ely shoshone portions of the mandible. Ill-defined soft | | | tissue associated with surgical clips in the left neck. This is | | | probably postoperative scarring due to surgical and therapeutic | | | changes. No evidence for metastatic disease to the chest. | | | Dictated and Signed by: Gavin Nieves MD Electronically signed: | | | 12/21/2018 9:47 AM | | + + + + + | Procedure Note | + + | [place], Rad Results In - 12/21/2018 0950 PDT EXAM: CT SOFT TISSUE NECK CHEST W CONTRAST | | dated 12/21/2018 6:53 AMHISTORY: restaging oral cavity cancer s/p partial mandibulectomy | | 11/02/17COMPARISON: PET CT 10/27/2017. No CT 10/24/2017. Chest CT 10/24/2017.TECHNIQUE: | | Imaging is performed from the skull base through the chest followingthe intravenous | | administration of 85 mL of Omnipaque 350.DOSE: DLP = 736.41 mGy per | | centimeter.FINDINGS:NECK CT:Interval resection and reconstruction of the right mandible. | | There is completeosseous fusion between the bone graft and ely shoshone portions of the | | mandible. There is mild atrophy of the left masseter and pterygoid muscles. The | | leftsternocleidomastoid is small compared to the right. The right submandibulargland | | has been surgically excised.There are surgical clips near the mandibular angle anterior | | to the carotidspace. There is blurring of typical fat planes in and anterior to the | | carotidspace and along the anterior margin of the left sternocleidomastoid (series | | 2,images 33 through 43). There is no mass effect upon the airway. No | | cervicallymphadenopathy. The epiglottis is normal. The vocal cords are | | symmetricallyopposed and without nodularity. The thyroid gland is normal. The globes | | andretrobulbar structures are symmetric and unremarkable.There is diffuse cervical | | spondylosis.CHEST CT:Lungs: Stable micronodule in the anterior right upper lobe (series | | 102, image54). No significant noncalcified pulmonary nodules. No airspace disease. | | Nopleural effusions. There was a patent. No bronchial wall thickening. | | Nobronchiectasis.Heart and mediastinum: No aneurysmal dilatation of the thoracic aorta. | | Nocardiac chamber enlargement. No pericardial thickening. No mediastinal orhilar | | lymphadenopathy.Chest wall: No axillary or visible supraclavicular | | lymphadenopathy.Upper abdomen: No significant pathology in the visible upper | | abdomen.Bones: No suspicious lytic or blastic bone lesions. There are healed right | | ribfractures.IMPRESSION -Postoperative changes consistent with partial mandibular | | resection andreconstruction on the left. The bone graft is well fused with ely shoshone | | portionsof the mandible.Ill-defined soft tissue associated with surgical clips in the | | left neck. Thisis probably postoperative scarring due to surgical and therapeutic | | changes.No evidence for metastatic disease to the chest.Dictated and Signed by: Gavin Colón | | MD Ezequiel Electronically signed: 12/21/2018 9:47 AM | | | |CHEST CT: | | | |Lungs: Stable micronodule in the anterior right upper lobe (series 102, image | |54). No significant noncalcified pulmonary nodules. No airspace disease. No | |pleural effusions. There was a patent. No bronchial wall thickening. No | |bronchiectasis. | | | |Heart and mediastinum: No aneurysmal dilatation of the thoracic aorta. No | |cardiac chamber enlargement. No pericardial thickening. No mediastinal or | |hilar lymphadenopathy. | | | |Chest wall: No axillary or visible supraclavicular lymphadenopathy. | | | |Upper abdomen: No significant pathology in the visible upper abdomen. | | | |Bones: No suspicious lytic or blastic bone lesions. There are healed right rib | |fractures. | | | | | |IMPRESSION - | | | |Postoperative changes consistent with partial mandibular resection and | |reconstruction on the left. The bone graft is well fused with ely shoshone portions | |of the mandible. | | | |Ill-defined soft tissue associated with surgical clips in the left neck. This | |is probably postoperative scarring due to surgical and therapeutic changes. | | | |No evidence for metastatic disease to the chest. 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, unspecified site | + + documented in this encounter Administered Medications + +--------+ +--------+------+------+ | Medication Order | MAR | Action | Dose | Rate | Site | | | Action | Date | | | | + +--------+ +--------+------+------+ | iohexol (OMNIPAQUE 350) 350 | Given | 12/22/19 | 85 mLs | | | | mg/mL injection 85 mL 85 mL, | | 19 7:35 | | | | | Intravenous, ONCE PRN, Other, for | | PDT | | | | | CT contrast study, Starting Jumana | | | | | | | 12/21/18 at 0735, For 1 dose, | | | | | | | Radiology | | | | | | + +--------+ +--------+------+------+ +---+---+ | | | +---+---+ documented in this encounter"
--- OUTSIDE RECORDS SUMMARY | ~2019-01-22 | XMS | Encounter Summary ---
Demographics + + + | Address | [address] | | | [place] [address] | + + + | Home Phone | | + + + | Preferred Language | Unknown | + + + | Marital Status | Single | + + + | Roman Catholic Affiliation | Unknown | + + + | Race | Unknown | + + + | Ethnic Group | Unknown | + + + Author + + + | Author | [facility] | | | and Demetriana | + + + | Organization | [facility] | | | and Demetriana | [...] Team Providers + +------+ + | Care Applications Architect Name | Role | Phone | + +------+ + | Pallavi Santiago PA-C | PCP | | + +------+ + Encounter Details +--------+ + + + + | Date | Type | Department | Care Team | Description | +--------+ + + + + | 12/15/ | Abstract | [facility] | Helio Fink DO | | | 2019 | | MED CTR RADIATION | [address] | | | | | ONCOLOGY CLINIC [address] | [place] | | | | | [place] [address] [place] | [address] | | | | | [place] [address] | | | | | | [phone] | | | +--------+ + + + [...]
--- OUTSIDE RECORDS SUMMARY | ~2019-01-22 | XMS | Encounter Summary ---
Demographics + + + | Address | [address] | | | [place] [address] | + + + | Home Phone | | + + + | Preferred Language | Unknown | + + + | Marital Status | Single | + + + | Anglican Affiliation | Unknown | + + + | Race | Unknown | + + + | Ethnic Group | Unknown | + + + Author + + + | Author | [facility] | | | and Demetriana | + + + | Organization | [facility] | | | and Demetriana [...] Team Providers + +------+ + | Care Restaurant Shift Supervisor Name | Role | Phone | [...] cavity | Helio Sevilla DO | [address] [place] | | | | | carcinoma | [address] | [place], | | | | | ([facility]) | [address] | [place] [address] | | | | | Procedures | [place], | Phone: | | | | | CT Chest w | [place] [address] | [phone] | | | | | Contrast | Phone: | Fax: | | | | | | [phone] | [phone] | | | | | | Fax: | | | | | | | [phone] | | +--------+--------+ + + + + [...] | Required | | mouth | PA-C [id number] | [address] | | | | | Procedures | | [place], | | | | | [place] OFFICE | [place] | [place] [address] | | | | | OUTPATIENT | WAY | Phone: | | | | | [address] | [place], | [phone] | | | | | MINUTES | [place] [address] | Fax: | | | | | | Phone: | [phone] | | | | | | [phone] | | | | | | | Fax: | | | | | | | [phone] | | +--------+ + + + + + Encounter Details +--------+ + + + + | Date | Type | Department | Care Team | Description | +--------+ + + + + | 12/18/ | Hospital | [facility] | Helio Fink DO | Oral cavity | | 2019 | Encounter | MED CTR RADIATION | [address] | carcinoma (HCC) | | | | ONCOLOGY CLINIC [address] | [place] | (Primary Dx); Cancer | | | | [address] [place] | [address] | of lip and oral | | | | [place] [address] | | cavity (HCC) | | | | [phone] | | | +--------+ + + + [...]
--- OUTSIDE RECORDS SUMMARY | ~2019-01-22 | XMS | Clinical Summary ---
Demographics + + + | Address | [address] | | | [place] [address] | + + + | Home Phone | | + + + | Preferred Language | Unknown | + + + | Marital Status | Single | + + + | Sabianism Affiliation | Unknown | + + + | Race | Unknown | + + + | Ethnic Group | Unknown | + + + Author + + + | Author | [facility] | | | and Demetriana | + + + | Organization | [facility] | | | and Demetriana [...] Team Providers + +------+ + | Care Care Companion Name | Role | Phone | + [...] | 12/21/ | Hospital | | Helio Fink, DO | Oral cavity | | 2018 [...] Height | 178 cm (5' 10.08") | 12/18/20181233 PDT | + + + [...] | fusion between the bone graft and [place] portions of the mandible. | | | [...] is well | | | fused with [place] portions of the mandible. Ill-defined soft | [...] completeosseous fusion between the bone graft and [place] portions of the | | mandible. There [...] The bone graft is well fused with [place] | | portionsof the mandible.Ill-defined soft tissue [...] The bone graft is well fused with [place] portions | |of the mandible. | | [...] +---------+--------+ | [place] | MEDICA | [id number] | | [phone] | | Medica | | | ID [place] | | 018-Pr | 2 | | id | | | PLUS | | esent | | | | + +--------+ +--------+ +---------+--------+ | [facility] | IHS | [id number] | | | | Indemn | | [...] | Self | [birth year] | [address] | | | al/Fam | | 1960 | [phone] | [place] [address] | | | korin | | | 4 (Home) | | + +--------+ +--------+ + + Advance Directives Patient has advance care planning documents on file. For more information, please contact:[facility] [place] [address]
--- OUTSIDE RECORDS SUMMARY | ~2019-01-22 | XMS | Encounter Summary ---
Demographics + + + | Address | [address] | | | [place] [address] | + + + | Home Phone | | + + + | Preferred Language | Unknown | + + + | Marital Status | Single | + + + | Anabaptism Affiliation | Unknown | + + + | Race | Unknown | + + + | Ethnic Group | Unknown | + + + Author + + + | Author | [facility] | | | and Demetriana | + + + | Organization | [facility] | | | and Demetriana | [...] Team Providers + +------+ + | Care Is Manager Name | Role | Phone | [...] | | | | | Procedures | [address] | [place] | | | | | [place] OFFICE | | [place] | | | | | OUTPATIENT | [place], | [address] | | | | | [address] | [place] | Phone: | | | | | MINUTES | [address] | [phone] | | | | | | | Fax: | | | | | | | [phone] | +--------+ + + + + + Encounter Details +--------+ + + + + | Date | Type | Department | Care Team | Description | +--------+ + + + + | 12/21/ | Hospital | [facility] | Ashvin Fajardo, | Oral cavity | | 2019 | Encounter | MED CTR MEDICAL | [address] | carcinoma (HCC) | | | | ONCOLOGY CLINIC [address] | [place] | (Primary Dx) | | | | [address] | [address] | | | | | [place] [address] | [phone] | | | | | [phone] | | | +--------+ + + + [...]
--- OUTSIDE RECORDS SUMMARY | ~2019-01-22 | XMS | Clinical Summary ---
Demographics + + + | Address | [address] | | | [place] [address] | + + + | Home Phone | | + + + | Preferred Language | Unknown | + + + | Marital Status | Single | + + + | Evangelical Affiliation | Unknown | + + + | Race | Unknown | + + + | Ethnic Group | Unknown | + + + Author + + + | Author | [facility] | | | and [place]etriana | + + + | Organization | [facility] | | | and Demetriana [...] Providers + +------+ + | Care Senior Web Designer Name | Role | Phone | + [...] | fusion between the bone graft and [place] portions of the mandible. | | | [...] is well | | | fused with [place] portions of the mandible. Ill-defined soft | [...] completeosseous fusion between the bone graft and [place] portions of the | | mandible. There [...] The bone graft is well fused with [place] | | portionsof the mandible.Ill-defined soft tissue [...] The bone graft is well fused with [place] portions | |of the mandible. | | [...] +---------+--------+ | [employer] | MEDICA | [id number] | | [phone] | | Medica | | | [place] | | 018-Pr | 2 | | id | | | PLUS | | esent | | | | + +--------+ +--------+ +---------+--------+ | [facility] | IHS | [id number] | | | | Indemn | | [...] | Self | [birth year] | | [address] | | | al/Fam | | 1960 | [phone] | [place] [address] | | | korin | | | 4 (Home) | | + +--------+ +--------+ + + Advance Directives Patient has advance care planning documents on file. For more information, please contact:[facility] [place] [address]
--- OUTSIDE RECORDS SUMMARY | ~2019-01-22 | XMS | Encounter Summary ---
Demographics + + + | Address | [address] | | | [place] [address] | + + + | Home Phone | | + + + | Preferred Language | Unknown | + + + | Marital Status | Single | + + + | Taoist Affiliation | Unknown | + + + | Race | Unknown | + + + | Ethnic Group | Unknown | + + + Author + + + | Author | [facility] | | | and Demetriana | + + + | Organization | [facility] | | | and Demetriana [...] Team Providers + +------+ + | Care Slip Box Changer Name | Role | Phone | + [...] cavity | Helio Sevilla DO | [address] [place] | | | | | carcinoma | [address] | [place], | | | | | ([facility]) | [address] | [place] [address] | | | | | Procedures | [place], | Phone: | | | | | CT Chest w | [place] [address] | [phone] | | | | | Contrast | Phone: | Fax: | | | | | | [phone] | [phone] | | | | | | Fax: | | | | | | | [phone] | | +--------+--------+ + + + + [...] cavity | Helio C, DO | [address] [place] | | | | | carcinoma | [address] | [place], | | | | | ([facility]) | [address] | [place] [address] | | | | | Procedures | [place], | Phone: | | | | | CT Chest w | [place] [address] | [phone] | | | | | Contrast | Phone: | Fax: | | | | | | [phone] | [phone] | | | | | | Fax: | | | | | | | [phone] | | +--------+--------+ + + + + [...] + + | 12/21/ | Hospital | [facility] | Helio Fink DO | Oral cavity | | 2019 | Encounter | MED CTR CT [address] | [address] | carcinoma (HCC) | | | | [place], | [place], [place] | | | | | [place] [address] | [address] | | | | | [phone] | | | +--------+ + + + [...] | fusion between the bone graft and ione portions of the mandible. | | | [...] is well | | | fused with [place] portions of the mandible. Ill-defined soft | [...] completeosseous fusion between the bone graft and ione portions of the | | mandible. There [...] The bone graft is well fused with ione | | portionsof the mandible.Ill-defined soft tissue [...] The bone graft is well fused with ione portions | |of the mandible. | | [...]
--- OUTSIDE RECORDS SUMMARY | ~2019-01-22 | XMS | Encounter Summary ---
Demographics + + + | Address | [address] | | | [place] [address] | + + + | Home Phone | | + + + | Preferred Language | Unknown | + + + | Marital Status | Single | + + + | Islam Affiliation | Unknown | + + + | Race | Unknown | + + + | Ethnic Group | Unknown | + + + Author + + + | Author | [facility] | | | and Demetriana | + + + | Organization | [facility] | | | and Demetriana [...] Team Providers + +------+ + | Care Bar Tender Name | Role | Phone | + [...] cavity | Helio Sevilla DO | [address] | | | | | carcinoma | [address] | [place], | | | | | ([facility]LY [facility]) | [address] | [place] [address] | | | | | Procedures | [place], | Phone: | | | | | CT Chest w | [place] [address] | [phone] | | | | | Contrast | Phone: | Fax: | | | | | | [phone] | [phone] | | | | | | Fax: | | | | | | | [phone] | | +--------+--------+ + + + + [...] | Required | | mouth | PA-C [address] | [address] | | | | | Procedures | | [place], | | | | | [place] OFFICE | [place] | [place] [address] | | | | | OUTPATIENT | WAY | Phone: | | | | | [address] | [place], | [phone] | | | | | MINUTES | [place] [address] | Fax: | | | | | | Phone: | [phone] | | | | | | [phone] | | | | | | | Fax: | | | | | | | [phone] | | +--------+ + + + + + Encounter Details +--------+ + + + + | Date | Type | Department | Care Team | Description | +--------+ + + + + | 12/18/ | Hospital | [facility] | Helio Fink DO | Oral cavity | | 2019 | Encounter | MED CTR RADIATION | [address] | carcinoma (HCC) | | | | ONCOLOGY CLINIC [address] | [place] | (Primary Dx); Cancer | | | | [place] | [address] | of lip and oral | | | | [place] [address] | | cavity (HCC) | | | | [phone] | | | +--------+ + + + [...]
--- OUTSIDE RECORDS SUMMARY | ~2019-01-22 | XMS | Encounter Summary ---
Demographics + + + | Address | [address] | | | [place] [address] | + + + | Home Phone | | + + + | Preferred Language | Unknown | + + + | Marital Status | Single | + + + | Holiness Affiliation | Unknown | + + + | Race | Unknown | + + + | Ethnic Group | Unknown | + + + Author + + + | Author | [facility] | | | and Demetriana | + + + | Organization | [facility] | | | and [...] Team Providers + +------+ + | Care Manager Rehab Name | Role | Phone | + +------+ + | Pallavi Santiago PA-C | PCP | | + +------+ + Encounter Details +--------+ + + + + | Date | Type | Department | Care Team | Description | +--------+ + + + + | 12/15/ | Abstract | [facility] | Helio Fink DO | | | 2019 | | [facility] | [address] | | | | | [facility] [address] | [place] | | | | | [address] [place] | [address] | | | | | [place] [id number] | | | | | | [phone] | | | +--------+ + + + [...]
--- OUTSIDE RECORDS SUMMARY | 2019-01-22 23:04 | XMS ---
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 IF HE COMES IN, HE IS TO CONTACT [facility] AND SPEAK WITH GEORGES DOSS AT [phone] . AT THIS TIME THE ONLY PLAN THROUGH [facility] IS A DENTIST APPOINTMENT 11/29/17. HE DOES NOT HAVE MEDICAL COVERAGE THROUGH THIS [place]. HE CAN APPLY FOR THIS, HE MUST TALK WITH GEORGES. Care History Social 11/22/2017 [facility] PATIENT IS HOMELESS. PATIENT'S IS IN A FPC IN [place].PATIENT IS A [place]BER OF [place] WHERE HIS MOTHER LIVES. HE HAS MEDICAL BENEFITS THROUGH THEM. [facility] IS TRYING TO HELP PATIENT, HE IS NON-COMPLIANT AND DOES NOT FOLLOW THROUGH WITH PLANS. PATIENT HAS BEEN TRESSPASSED FROM THE [employer] [facility]. Medical/Surgical 01/17/2019 [facility] \T\middot;\T\nbsp; PATIENT IS A [employer] MEMBER. \T\middot;\T\nbsp; PLEASE REFER PATIENT TO [facility] FOR NON EMERGENT MEDICAL NEEDS. \T\middot;\ T\nbsp; [facility] CAN SEE PATIENTS SAME DAY FOR APTS IF PATIENT CALLS FIRST THING IN THE MORNING. E.D. VISIT COUNT (12 MO.) 1 [facility] [address] TOTAL 6 NOTE: Visits indicate total known visits. ED/UCC VISIT TRACKING (12 MO.) 01/22/2019 23:02 SAM[place]A [place] TYPE: Emergency COMPLAINT: - EXTREMITY PAIN/NON INJURY 01/16/2019 20:03 [place] TYPE: Emergency COMPLAINT: - CHEST PAIN DIAGNOSES: - Other malaise - Nicotine dependence, unspecified, uncomplicated - Allergy status to narcotic agent status - Other terminal superintendent (current) drug therapy - Allergy status to other drugs, medicaments and biological substances status - Dizziness and giddiness - Personal history of malignant neoplasm of other sites of lip, oral cavity, and pharynx 12/31/2018 11:59 SAMANTHA [place] TYPE: Emergency COMPLAINT: - LOSS OF CONCIOUSNESS DIAGNOSES: - Syncope and collapse - Personal history of malignant neoplasm of bone - Blood alcohol level of 240 mg/100 ml or more - Nicotine dependence, unspecified, uncomplicated - Other terminal superintendent (current) drug therapy - Alcohol abuse with intoxication, unspecified - Allergy status to narcotic agent status - Allergy status to other drugs, medicaments and biological substances status 10/20/2018 08:12 [facility] [place] TYPE: Emergency DIAGNOSES: 0. NOT [...] visits to display in this time frame [email or web address]
--- NOTE | 2019-01-23 11:41 | EKG ---
[facility] [address] [facility] [place] [address] Signed Normal sinus rhythm Normal ECG When compared with ECG of 16-JAN-2019 20:10, [place] interval has decreased Confirmed by DAVID ROBINS MD ([id number]) on 01/23/2019 11:41:26 AM Electronically Signed By: DAVID ROBINS MD 01/23/19 1141 PATIENT NAME: MARK CHAN Ling Electrocardiogram DATE OF : 64 PHYSICIAN: DAVID ROBINS MD REPORT #: [id number] REPORT IS CONFIDENTIAL AND NOT TO BE RELEASED WITHOUT AUTHORIZATION
== END 2019-01-23 01:07 | disposition home or self-care (01) ==
LOC: ED 23:01
DX: E86.0 Dehydration (principal); F10.10 Alcohol abuse, uncomplicated; F17.200 Nicotine dependence, unspecified, uncomplicated; Z88.5 Allergy status to narcotic agent; Z88.8 Allergy status to other drugs, medicaments and biological substances; Z79.899 Other long term (current) drug therapy
CPT/HCPCS: 93005; 93010; 96360; 99285-25; J7030

== ENCOUNTER 2020-08-17 17:18 | Emergency (ER) | payer OTHER ==
[~2020-08-17] VITALS: Ht 175.3 cm; Wt 80.7 kg
== END 2020-08-17 22:14 | disposition home or self-care (01) ==
LOC: ED 17:18
DX: Z00.8 Encounter for other general examination (principal); F17.200 Nicotine dependence, unspecified, uncomplicated; Z88.8 Allergy status to other drugs, medicaments and biological substances; Z88.5 Allergy status to narcotic agent
CPT/HCPCS: 80053; 80176; 81001; 84443; 85025; 99283; G0480

== ENCOUNTER 2020-10-16 07:12 | Emergency (ER) | payer OTHER ==
[~2020-10-16] VITALS: Ht 175.3 cm; Wt 80.7 kg
== END 2020-10-16 09:40 | disposition home or self-care (01) ==
LOC: ED 07:12
DX: T68.XXXA Hypothermia, initial encounter (principal); Z77.29 Contact with and (suspected) exposure to other hazardous substances; G47.30 Sleep apnea, unspecified; F17.200 Nicotine dependence, unspecified, uncomplicated; Z88.5 Allergy status to narcotic agent; Z88.8 Allergy status to other drugs, medicaments and biological substances
CPT/HCPCS: 99284

== ENCOUNTER 2021-03-02 16:45 | Emergency (ER) | payer OTHER ==
[~2021-03-02] VITALS: Ht 175.3 cm; Wt 72.6 kg
== END 2021-03-02 17:21 | disposition home or self-care (01) ==
LOC: ED 16:45
DX: F15.10 Other stimulant abuse, uncomplicated (principal); Z59.0 Homelessness; F17.200 Nicotine dependence, unspecified, uncomplicated; Z88.5 Allergy status to narcotic agent; Z88.8 Allergy status to other drugs, medicaments and biological substances
CPT/HCPCS: 99283

== ENCOUNTER 2021-03-06 04:03 | Emergency (ER) | payer OTHER ==
[~2021-03-06] VITALS: Ht 175.3 cm; Wt 72.6 kg
[2021-03-06] MEDS ORDERED: IBU600 MG PO (05:35)
[2021-03-06] MEDS ORDERED: CYCLOBENZAPRINE10 MG PO (05:35)
== END 2021-03-06 05:45 | disposition home or self-care (01) ==
LOC: ED 04:03
DX: S00.83XA Contusion of other part of head, initial encounter (principal); Y04.8XXA Assault by other bodily force, initial encounter; F17.200 Nicotine dependence, unspecified, uncomplicated; Z88.5 Allergy status to narcotic agent; Z88.8 Allergy status to other drugs, medicaments and biological substances
CPT/HCPCS: 70450; 70486; 73560; 99284-25; A9270

== ENCOUNTER 2021-05-13 13:25 | Emergency (ER) | payer OTHER ==
[~2021-05-13] VITALS: Ht 175.3 cm; Wt 70.3 kg
--- NOTE | ~2021-05-13 | EKG ---
[facility] [address] [facility] [place], [place] [address] Draft EK completed, results pending confirmation PATIENT NAME: MARK CHAN PARVEEN Electrocardiogram DATE OF : 64 PHYSICIAN: PRELIMINARY REPORT #: [id number] REPORT IS CONFIDENTIAL AND NOT TO BE RELEASED WITHOUT AUTHORIZATION
[~2021-05-13 13:25] MED LIST changes: +CYCLOBENZAPRINE10 MG PO
--- NOTE | 2021-05-13 19:19 | EKG ---
[facility] [address] [facility] [place], [place] [address] Signed Sinus tachycardia Otherwise normal ECG When compared with ECG of 13-MAY-2021 13:43, (Unconfirmed) No significant change was found Confirmed by JOHN FISH DO ([id number]) on 05/13/2021 7:18:53 PM Electronically Signed By: JOHN FISH DO 05/13/211918 PATIENT NAME: MARK CHAN PARVEEN Electrocardiogram DATE OF : 64 PHYSICIAN: JOHN FISH DO REPORT #: [id number] REPORT IS CONFIDENTIAL AND NOT TO BE RELEASED WITHOUT AUTHORIZATION
== END 2021-05-13 16:00 | disposition home or self-care (01) ==
LOC: ED 13:25
DX: E86.0 Dehydration (principal); F10.10 Alcohol abuse, uncomplicated; F15.10 Other stimulant abuse, uncomplicated; F17.200 Nicotine dependence, unspecified, uncomplicated; Z88.5 Allergy status to narcotic agent; Z88.8 Allergy status to other drugs, medicaments and biological substances
CPT/HCPCS: 80053; 85025; 93005; 93010; 99284-25

== ENCOUNTER 2021-11-11 16:03 | Emergency (ER) | payer OTHER ==
[~2021-11-11] VITALS: Ht 177.8 cm; Wt 72.6 kg
[2021-11-11] MEDS ORDERED: CYMBALTA30 MG PO (16:25)
[2021-11-11] MEDS ORDERED: LEVOFLOXACIN750 MG PO (20:47)
== END 2021-11-11 20:56 | disposition home or self-care (01) ==
LOC: ED 16:03
DX: S61.211A Laceration without foreign body of left index finger without damage to nail, initial encounter (principal); L08.9 Local infection of the skin and subcutaneous tissue, unspecified; L03.012 Cellulitis of left finger; F17.200 Nicotine dependence, unspecified, uncomplicated; Z20.822 Contact with and (suspected) exposure to COVID-19; Z85.89 Personal history of malignant neoplasm of other organs and systems; Z88.5 Allergy status to narcotic agent; Z88.8 Allergy status to other drugs, medicaments and biological substances; Z79.899 Other long term (current) drug therapy; W26.9XXA Contact with unspecified sharp object(s), initial encounter
CPT/HCPCS: 36415; 73130; 73140; 73201; 80048; 83605; 85025; 90471; 90715; 96375; 99284-25; C9803; J0295; J1885; Q9967; U0003

== ENCOUNTER 2022-03-13 13:32 | Emergency (ER) | payer SELFPAY ==
[~2022-03-13] VITALS: Ht 177.8 cm; Wt 72.6 kg
[~2022-03-13 13:32] MED LIST changes: +LEVOFLOXACIN750 MG PO
--- NOTE | 2022-03-13 14:54 | EKG ---
[facility] [address] [facility] [place] [address] Signed Normal sinus rhythm Normal ECG When compared with ECG of 13-MAY-2021 13:44, No significant change was found Confirmed by DAVID ROBINS MD ([id number]) on 03/13/2022 2:53:52 PM Electronically Signed By: DAVID ROBINS MD 03/13/22 1454 PATIENT NAME: MARK CHAN PARVEEN Electrocardiogram DATE OF : 64 PHYSICIAN: DAVID ROBINS MD REPORT #: [id number] REPORT IS CONFIDENTIAL AND NOT TO BE RELEASED WITHOUT AUTHORIZATION
== END 2022-03-13 16:19 | disposition home or self-care (01) ==
LOC: ED 13:32
DX: R07.89 Other chest pain (principal); Z85.818 Personal history of malignant neoplasm of other sites of lip, oral cavity, and pharynx; F17.210 Nicotine dependence, cigarettes, uncomplicated; Z88.5 Allergy status to narcotic agent; Z88.8 Allergy status to other drugs, medicaments and biological substances; Z79.899 Other long term (current) drug therapy
CPT/HCPCS: 36415; 71045; 80048; 84484; 85025; 93005; 93010; 99285-25

== ENCOUNTER 2024-10-16 20:03 | Emergency (ER) | payer OTHER ==
[~2024-10-16] VITALS: Ht 177.8 cm; Wt 86.2 kg
[~2024-10-16 20:03] MED LIST changes: +HYDROCODON-ACE1 EA10 PO
[2024-10-16] MEDS ORDERED: FOLIC ACID 1 MG/0.2 ML ML ONE (20:57)
[2024-10-16] MEDS ORDERED: MULTIVITAMINS 10 ML,FOLIC ACID 1 MG,THIAMINE HCL 100 MG in SODIUM CHLORIDE 0.9% 1,000 ML IV ONE (21:00)
[2024-10-16 22:19] LABS: INFLUENZA B NAA NEGATIVE (NEGATIVE); RESPIRATORY SYNCYTIAL VIR NAA NEGATIVE (NEGATIVE)
[2024-10-16 22:28] LABS: BASOPHILS 0.6 % (0-2); EOSINOPHILS 1.6 % (0-6); HEMATOCRIT 33.8 % (35.0-50.0); HEMOGLOBIN 11.3 g/dL (12.0-18.0); LYMPHOCYTES 9.5 % (24-44); MCHC 33.5 g/dl (30-36); MCV 95.4 fl (81-99); MONOCYTES 5.4 % (0-12); NEUTROPHILS 82.9 % (39-80); PLATELET COUNT 184 K/uL (140-440); RBC 3.54 M/ul (4.3-5.7); RDW 14.2 (10.5-15.0)
[2024-10-16 22:47] LABS: MAGNESIUM 1.9 mg/dL (1.8-2.4)
[2024-10-16 22:57] LABS: ACETAMINOPHEN 0 ug/mL (10-30); ALBUMIN 3.2 g/dL (3.4-5.0); ALBUMIN/GLOBULIN RATIO 0.86 (1.1-2.4); ALCOHOL, MEDICAL <3 ng/dL (<3); ALKALINE PHOSPHATASE 73 U/L (46-116); ALT (SGPT) 12 U/L (14-59); ANION GAP 10.4 (7-21); AST (SGOT) 28 U/L (15-37); BILIRUBIN, TOTAL 0.9 ng/dL (0.2-1.0); CARBON DIOXIDE 29 mmol/L (21-32); CHLORIDE 102 mmol/L (98-107); CREATININE, SERUM 0.86 mg/dL (0.70-1.30); GLOMERULAR FILTRATION RATE,EST 98 mL/min (>60); POTASSIUM 3.4 mmol/L (3.5-5.1); PROTEIN, TOTAL 6.9 g/dL (6.4-8.2); SALICYLATE 0.7 mg/dL (2.8-20.0); TSH, 3RD GENERATION 1.499 uIU/mL (0.358-3.740); UREA NITROGEN 16 mg/dL (7-18)
[2024-10-16 23:46] VITALS: BP 121/79
== END 2024-10-16 23:47 | disposition home or self-care (01) ==
LOC: ED 20:03
PROVIDERS: Internal Medicine
DX: F19.10 Other psychoactive substance abuse, uncomplicated (principal); F22 Delusional disorders; F17.200 Nicotine dependence, unspecified, uncomplicated; Z88.5 Allergy status to narcotic agent; Z88.8 Allergy status to other drugs, medicaments and biological substances
CPT/HCPCS: 36415; 71045; 80053; 80307; 83735; 84443; 84484; 85025; 87502; 96365; 99285-25; G0480; J3411; J7030; U0002

== ENCOUNTER 2025-01-18 08:46 | Emergency (ER) | payer OTHER ==
[~2025-01-18] VITALS: Ht 177.8 cm; Wt 75.9 kg
[2025-01-18] MEDS ORDERED: OLANZapine 10 MG TABDIS PO ONE (09:30)
[2025-01-18 10:10] VITALS: BP 158/110
--- NOTE | 2025-01-18 19:14 | EKG ---
[facility] [address] [facility] [place] [address] Signed Normal sinus rhythm Normal ECG No previous ECGs available Confirmed by Juan A Fang MD ([id number]) on 01/18/2025 7:14:32 PM Electronically Signed By: JUAN A FANG MD 01/18/251913 PATIENT NAME: MARK CHAN Electrocardiogram DATE OF : 64 PHYSICIAN: JUANA FANG MD REPORT #: [id number] REPORT IS CONFIDENTIAL AND NOT TO BE RELEASED WITHOUT AUTHORIZATION
== END 2025-01-18 10:12 | disposition home or self-care (01) ==
LOC: ED 08:46
DX: F15.959 Other stimulant use, unspecified with stimulant-induced psychotic disorder, unspecified (principal); F17.200 Nicotine dependence, unspecified, uncomplicated; Z88.5 Allergy status to narcotic agent; Z88.8 Allergy status to other drugs, medicaments and biological substances
CPT/HCPCS: 93005; 93010; 99285; A9270